=== PATIENT | female | born 1960 | race Caucasian/White ===

== ENCOUNTER 2017-06-19 07:43 | Emergency (ER) | payer OTHER ==
[2017-06-19 08:00] VITALS: BP 134/88; PULSE 87; RESP 18; TEMP 98; O2SAT 97
--- NOTE | 2017-06-19 08:07 | EDPHY ---
H & P HPI/ROS: CHIEF COMPLAINT: Right knee pain History by patient HISTORY OF PRESENT ILLNESS: 49-year-old woman presents complaining of pain in her right knee as well as in her left thenar eminence and left knee after sustaining a fall at work where she slipped on a puddle of water near the ice machine. 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 She did not her head. Fall occurred on Monday morning. She has been able to bear weight but states that the knee is very painful and swollen. She is more concerned about this and her left knee or left hand. REVIEW OF SYSTEMS: As in HPI, and all other systems reviewed and are negative Smoking Status: Never smoked Physical Exam: General Appearance: Alert and no distress. Morbidly obese Eyes: Pupils equal and round no injection. Musculoskeletal: Neck is supple and nontender. Extremities: Left hand mild tenderness thenar eminence, full range of motion of wrist left wrist and fingers, radial, median and ulnar nerve intact motor and sensory, radial pulse 2 +equal bilaterally. Left knee: No swelling or deformity, full range of motion without pain, mild prepatellar tenderness, DP pulse 2 +equal to the right, distal sensation and motor intact Right knee: Positive ecchymoses anterior right knee over patellar tendon, full range of motion actively and passively with some pain with full flexion, positive tenderness over lateral joint line, positive posterior tenderness, minimal swelling appreciated, DP pulse 2 +difficult to left, distal sensation intact, positive limp with gait Skin: No rashes or lesions except as described above. Neuro: Awake alert oriented x3 Constitutional: Initial Vital Signs Temperature (C) 36.6 C 06/19/17 07:55 Heart Rate 87 06/19/17 07:55 Respiratory Rate 18 06/19/17 07:55 Blood Pressure 134/88 H 06/19/17 07:55 O2 Sat (%) 97 06/19/17 07:55 O2 Delivery Mode Room Air Allergies/Adverse Reactions: IV CONTRAST Allergy (Uncoded 04/15/13 16:58) Home Medications: Medication Instructions Recorded Meloxicam 7.5 mg PO DAILY #7 tablet 06/19/17 Metoprolol Tartrate 06/19/17 Statin 06/19/17 MDM/Departure - [facility] ED Course/Re-evaluation: [age]-year-old woman presents with right knee pain after fall sustained at work. Exam is notable for ecchymoses but minimal swelling full range of motion and patient is weight-bearing therefore I doubt fracture. We discussed x-ray but decided this was not indicated. We will treat patient conservatively with rest ice compression and NSAIDs. Patient is given a work note for to the next 2 days. She can follow up with workman's Comp as needed for persistent symptoms. - Depart Disposition: Home, Routine, Self-Care Clinical Impression: Sprain of unspecified site of right knee, initial encounter, Contusion of right knee, initial encounter Condition: Good Instructions: Knee Sprain (ED), Contusion in Adults (ED) Additional Instructions: You were seen by Dr. Marixa Brenner today. You may wrap and Bhavin bandage around her knee for compression to help the swelling. Ice your knee for 20 min every hour for the next 24 hr. Keep it elevated above the level of the heart for the next 48 hr. You may put as much weight on it as he can tolerate. Take meloxicam once a day for pain for the next 5 days. Return for any worsening or new concerns. Prescriptions: Meloxicam 7.5 mg PO DAILY #7 tablet Referrals: SUKUMAR BERNAL [Other] - As per Instructions
== END 2017-06-19 08:18 | disposition home or self-care (01) ==
LOC: CED 07:43
DX: S83.91XA Sprain of unspecified site of right knee, initial encounter (principal); S80.01XA Contusion of right knee, initial encounter; W01.0XXA Fall on same level from slipping, tripping and stumbling without subsequent striking against object, initial encounter; Y92.69 Other specified industrial and construction area as the place of occurrence of the external cause; Y99.0 Civilian activity done for income or pay; Y93.89 Activity, other specified

== ENCOUNTER → 2017-09-04 | Outpatient (CLI) | payer OTHER ==
[~2017-09-04] MED LIST: BUPIVACAINE 0.25% 30 ML SDV ONE; DEPO METHYLPREDNISOLONE 40 MG/ML SDV ONE; LIDOCAINE 1% 300 MG/30 ML SDV ONE
== END ==
LOC: FIMAGING 07:57
PROVIDERS: ATTEND Orthopaedic Surgery Sports Medicine
PROC: 0Y9F3ZZ Drainage of Right Knee Region, Percutaneous Approach (ICD-10-PCS; principal; 2017-09-04)
PROC: 3E0U33Z Introduction of Anti-inflammatory into Joints, Percutaneous Approach (ICD-10-PCS; 2017-09-04)
DX: M71.21 Synovial cyst of popliteal space [Baker], right knee (principal)
CPT/HCPCS: J1030